=== PATIENT | female | born 1965 | race Caucasian/White ===

== ENCOUNTER → 2017-05-11 | Outpatient (CLI) | payer BC ==
--- NOTE | 2017-05-11 11:27 | DIAGNOSTIC IMAGING REPORT ---
LEFT FOOT ULTRASOUND CLINICAL HISTORY: Foreign body in foot. COMPARISON STUDY: No previous studies for comparison. FINDINGS: Targeted sonography of the plantar aspect of the left foot demonstrated a 0.5 x 0.5 x 0.2 cm hypoechoic region which contained a 0.1 cm echogenic focus. This finding is 0.5 cm from the skin. A possible tract to the skin was noted. IMPRESSION: Findings suggestive of a 0.1 cm foreign body within the plantar subcutaneous tissues of the left foot with associated 0.5 cm fluid collection, located 0.5 cm from the skin. Electronically signed by: Duncan Briceño M.D. 05/11/2017 11:26 AM Dictated Date/Time: 05/11/2017 11:24 AM
== END | disposition home or self-care (01) ==
LOC: C.ULTR 10:22
PROVIDERS: ATTEND Family Medicine
DX: S90.852A Superficial foreign body, left foot, initial encounter (principal); X58.XXXA Exposure to other specified factors, initial encounter

== ENCOUNTER → 2017-05-18 | Outpatient (CLI) | payer BC | END | disposition home or self-care (01) | LOC: C.LABMFLN 11:07 | PROVIDERS: ATTEND Family Medicine | DX: R00.2 Palpitations (principal) ==

== ENCOUNTER → 2017-07-27 | Outpatient (CLI) | payer BC ==
[~2017-07-27] MED LIST: PERFLUTREN LIPID MICROSPHERE (DEFINITY) IV ONE; REGADENOSON 0.4 MG/5 ML SYR ONE
--- NOTE | 2017-07-27 17:40 | ECHOCARDIOGRAM REPORT ---
*NOTICE TO RECEIVING [employer] This information is strictly Confidential and protected under [place] law. [place] law prohibits you from making any further disclosure of this information unless further disclosure is expressly permitted by the written consent of the person to whom it pertains or is authorized by law. A general authorization for the release of medical or other information is not sufficient for this purpose. Hospital accepts no responsibility if the information is made available to any other person, INCLUDING THE PATIENT. Interpretation Summary * Name: MORENA SHIN Study Date: 07/27/2017 12:20 PM * Patient Location: [facility] HR: 70 * : 1965 (M/d/yyyy) Gender: Female Height: 64 in * Age: 52 yrs Ethnicity: [place] Weight: 274 lb * Ordering Physician: Navarro Eddy * Referring Physician: Navarro Eddy. * Performed By: Ginger French RCS * * Reason For Study: CHEST PAIN * BSA: 2.2 m2 * -- Conclusions -- * 1. Normal LV size. Mild concentric LVH with asymmetric basal septal hypertrophy. * 2. LVEF 30-35 percent. Severe inferior hypokinesis. Severe apical hypokinesis. * 3. Normal RV size and function. * 4. Mild mitral regurgitation. * 5. Grade 1 diastolic dysfunction. * 6. No prior studies for comparison. Procedure Details * A complete two-dimensional transthoracic echocardiogram was performed (2D, M-mode, Doppler and color flow Doppler). * The study was technically difficult. * A contrast injection of Definity was performed to improve assessment of LV function. * Contrast was injected into an intravenous site in the left arm. * One vial of Definity ultrasound contrast was diluted in normal saline to a total volume of 10 ml. A total of '3' ml of solution was administered during imaging. * Lot # [id number] of Definity utilized for procedure. * Expiration date JUL 07. Left Ventricle * The left ventricle is grossly normal size. * There is no thrombus. * There is mild concentric left ventricular hypertrophy. * Asymmetric basal septal hypertrophy. * Ejection Fraction = 30-35%. * Septal motion is consistent with conduction abnormality. * There is severe inferior wall hypokinesis. * There is severe apical wall hypokinesis. Right Ventricle * The right ventricle is grossly normal size. * The right ventricular systolic function is normal as assessed by tricuspid annular plane systolic excursion (TAPSE) (normal >1.5 cm). Atria * The left atrial size is normal. * Right atrial size is normal. Mitral Valve * The mitral valve is grossly normal. * There is no mitral valve stenosis. * There is mild mitral regurgitation. Tricuspid Valve * There is trace tricuspid regurgitation. Aortic Valve * The aortic valve opens well. * The aortic valve is trileaflet. * No hemodynamically significant valvular aortic stenosis. * There is no significant aortic regurgitation. Pulmonic Valve * The pulmonary valve is inadequately visualized, but the Doppler data is adequate for interpretation. * There is no significant pulmonary regurgitation. Great Vessels * The aortic root and proximal ascending aorta are normal sized. Pericardium/Pleural * There is no pericardial effusion. Left Ventricular Diastolic Function * Grade I diastolic dysfunction, (abnormal relaxation pattern). MMode 2D Measurements and Calculations IVSd 1.7 cm IVSs 2.0 cm LVIDd 6.0 cm LVIDs 4.5 cm LVPWd 1.3 cm LVPWs 1.6 cm IVS/LVPW 1.3 FS 23.9 % EDV(Teich) 177.6 ml ESV(Teich) 94.5 ml EF(Teich) 46.8 % EDV(cubed) 212.3 ml ESV(cubed) 93.7 ml EF(cubed) 55.8 % % IVS thick 17.8 % % LVPW thick 17.0 % LV mass(C)d 431.9 grams LV mass(C)dI 193.1 grams/m\S\2 LV mass(C)s 367.2 grams LV mass(C)sI 164.2 grams/m\S\2 SV(Teich) 83.1 ml SI(Teich) 37.2 ml/m\S\2 SV(cubed) 118.6 ml SI(cubed) 53.0 ml/m\S\2 Ao root diam 3.3 cm Ao root area 8.5 cm\S\2 LA dimension 4.6 cm LA/Ao 1.4 LVOT diam 2.0 cm LVOT area 3.1 cm\S\2 LVAd ap4 32.7 cm\S\2 LVLd ap4 6.9 cm EDV(MOD-sp4) 126.6 ml EDV(sp4-el) 130.9 ml LVAs ap4 24.8 cm\S\2 LVLs ap4 6.3 cm ESV(MOD-sp4) 80.0 ml ESV(sp4-el) 82.9 ml EF(MOD-sp4) 36.8 % EF(sp4-el) 36.6 % LVAd ap2 45.9 cm\S\2 LVLd ap2 9.3 cm EDV(MOD-sp2) 190.9 ml EDV(sp2-el) 191.6 ml LVAs ap2 33.8 cm\S\2 LVLs ap2 7.7 cm ESV(MOD-sp2) 122.2 ml ESV(sp2-el) 125.1 ml EF(MOD-sp2) 36.0 % EF(sp2-el) 34.7 % LVLd %diff 25.6 % EDV(MOD-bp) 180.4 ml LVLs %diff 18.4 % ESV(MOD-bp) 108.2 ml EF(MOD-bp) 40.0 % SV(MOD-sp4) 46.6 ml SI(MOD-sp4) 20.8 ml/m\S\2 SV(MOD-sp2) 68.6 ml SI(MOD-sp2) 30.7 ml/m\S\2 SV(MOD-bp) 72.1 ml SI(MOD-bp) 32.3 ml/m\S\2 SV(sp4-el) 48.0 ml SI(sp4-el) 21.5 ml/m\S\2 SV(sp2-el) 66.5 ml SI(sp2-el) 29.7 ml/m\S\2 Doppler Measurements and Calculations MV E max kimberlyn 77.1 cm/sec MV A max kimberlyn 96.0 cm/sec MV E/A 0.80 MV P1/2t max kimberlyn 82.0 cm/sec MV P1/2t 72.6 msec MVA(P1/2t) 3.0 cm\S\2 MV dec slope 330.5 cm/sec\S\2 MV dec time 0.21 sec Ao V2 max 130.7 cm/sec Ao max PG 6.8 mmHg Ao max PG (full) 4.0 mmHg GMÓEZ(V,A) 2.0 cm\S\2 GÓMEZ(V,D) 2.0 cm\S\2 LV V1 max PG 2.9 mmHg LV V1 max 84.6 cm/sec PA V2 max 113.9 cm/sec PA max PG 5.2 mmHg TR max kimberlyn 267.5 cm/sec
== END | disposition home or self-care (01) ==
LOC: C.NUCL 09:17
PROVIDERS: ATTEND Internal Medicine Cardiovascular Disease
DX: I50.30 Unspecified diastolic (congestive) heart failure (principal); E78.5 Hyperlipidemia, unspecified; F17.210 Nicotine dependence, cigarettes, uncomplicated; I11.0 Hypertensive heart disease with heart failure; I44.7 Left bundle-branch block, unspecified; R00.2 Palpitations; R06.2 Wheezing; R07.89 Other chest pain

== ENCOUNTER → 2017-10-24 | Outpatient (CLI) | payer BC ==
[~2017-10-24] MED LIST changes: +ASPI81TA28 PO; +GLIM4TAB2 PO; +LOSA1TAB38 PO; +LPT40 PO; +LSX20 PO; +METO-217 PO; -PERFLUTREN LIPID MICROSPHERE (DEFINITY) IV ONE; -REGADENOSON 0.4 MG/5 ML SYR ONE
[2017-10-24 18:29] LABS: HEMATOCRIT 46.2 % (37-47); HEMOGLOBIN 15.4 g/dL (12.0-16.0); MEAN CELL VOLUME 90.4 fL (80-100); MEAN CORPUSCULAR HEMOGLOBIN 30.1 pg (25-34); MEAN CORPUSCULAR HGB CONC 33.3 g/dl (32-36); MEAN PLATELET VOLUME 10.8 fL (7.4-10.4); PLATELET COUNT 229 K/uL (130-400); RED CELL DISTRIBUTION WIDTH CV 12.6 % (11.5-14.5); RED CELL DISTRIBUTION WIDTH SD 41.6 fL (36.4-46.3); WHITE BLOOD COUNT 13.34 K/uL (4.8-10.8)
[2017-10-24 18:40] LABS: BLOOD UREA NITROGEN 22 mg/dl (7-18); CALCIUM 9.3 mg/dl (8.5-10.1); CARBON DIOXIDE 24 mmol/L (21-32); CREATININE 1.05 mg/dl (0.60-1.20); GLUCOSE 284 mg/dl (70-99); POTASSIUM 4.9 mmol/L (3.5-5.1); SODIUM 134 mmol/L (136-145)
[2017-10-24 18:41] LABS: INR 0.9 (0.9-1.1)
== END | disposition home or self-care (01) ==
LOC: C.LABMFLN 14:30
PROVIDERS: ATTEND Physician Assistant
DX: I42.9 Cardiomyopathy, unspecified (principal)

== ENCOUNTER → 2017-10-26 | Day surgery (SDC) | payer BC ==
[~2017-10-26] VITALS: Ht 161.3 cm; Wt 125.0 kg
[~2017-10-26] MED LIST changes: +ACETAMINOPHEN 325 MG TAB PO PRN; +ASPIRIN 81 MG CHEW ONE; +ATORVASTATIN 40 MG TAB PO SCH; +FENTANYL CITRATE INJ 50 MCG/1 ML 2 ML VIAL ONE; +FUROSEMIDE 20 MG TAB PO SCH; +FUROSEMIDE 40 MG/4 ML VIAL ONE; +FUROSEMIDE INJ 20 MG in SYRINGE 0 ML IV ONE; +HEPARIN SOD (PORCINE) 1000 UNIT/ML 10 ML VIAL ONE; +MIDAZOLAM HCL 1 MG/ML 2ML VIAL ONE; +NITROGLYCERIN/D5W 100MCG/ML 20ML SYR ONE; +NiCARDipine HCL INJ 2.5 MG/ML 10 ML AMP ONE; +ONDANSETRON INJ 2 MG/ML 2 ML VIAL IV PRN; +SODIUM CHLORIDE 0.9% 1000ML 1,000 ML IV SCH; +SODIUM CHLORIDE 0.9% 1000ML 250 ML IV PRN
[2017-10-26 07:21] VITALS: BP 154/79; PULSE 73; TEMP 36.7; O2SAT 98; Ht 161.3 cm; Wt 125.0 kg
--- NOTE | 2017-10-26 07:47 | History & Physical Bridge Note ---
H&P Re-Evaluation Bridge Note: I have examined the patient, reviewed the History & Physical and in the interval since the performance of the History & Physical I have noted the following changes of clinical significance: No changes noted
--- NOTE | 2017-10-26 07:48 | Pre Sedation Assessment ---
Pre Sedation Assessment General Date of Sedation: Oct 26, 2017. Vital Signs Past 12 Hours Date Time Temp Pulse Resp B/P (MAP) Pulse Ox O2 Delivery O2 Flow Rate FiO2 10/26/17 07:21 36.7 73 16 154/79 (104) 98 Room Air Review Cardiovascular: regular rate, rhythm Lungs: lungs clear Pre-Sedation Airway Assessment Smoking Status: Current Every Day Smoker Hx of Sleep Apnea: Yes Short Thick Neck: Yes Thyro-mental Distance: < or =3 Finger Breadths Oral Cavity: WNL Mallampati Classification: Class IV ASA Classification: Class III NPO Status Date of Last Intake of Fluids: Oct 25, 2017 Time of Last Intake of Fluids: 2300 Date of Last Intake of Solids: Oct 25, 2017 Time of Last Intake of Solids: 2300 Procedure Planning Contraindications for Sedation: None Current Medications Reviewed: Yes Notes The planned sedation has been discussed with the patient. Informed Consent was obtained. I have identified the patient, determined the appropriateness of sedation and have assessed the patient immediately prior to the procedure. All medicine(s) and interventions are by my order.
--- NOTE | 2017-10-26 07:57 | Cardiac Catheterization ---
Procedure Note Procedure Date Oct 26, 2017. Pre-Procedure Diagnosis Cardiomyopathy AUC Score 7 Post-Procedure Diagnosis Mild CAD, Elevated Intracardiac Pressures Procedure(s) Performed Coronary Angiography, Left Heart Cath, Right Heart Cath Clothing Patternmaker Dr. Eddy Water/Wastewater Engineer(s) Contino Estimated Blood Loss < 25 ml Medication(s) Fentanyl, Heparin, Nicardipine, Versed, Lidocaine 1% Summary of Findings Coronary angiography: 1. Left main coronary artery: Large caliber vessel. No significant CAD. 2. Left anterior descending: The LAD is a large caliber vessel that wraps around the apex. There are luminal irregularities in the mid LAD. There is a very large caliber branching D1 and also a D2 vessel. No significant CAD within the diagonal vessels. 3. Circumflex: The circumflex is a medium to large caliber vessel. It gives rise to a small caliber OM1 and OM2. No significant CAD within the circumflex system. 4. Right coronary artery: The RCA is a very large caliber vessel. Dominant RCA. Mid RCA 30-40%. Large PDA and large PL branches without significant CAD. Left heart catheterization: 1. Left ventriculography was not performed. 2. No significant aortic stenosis. Peak to peak gradient across the aortic valve was 5mmHg. 3. Mildly elevated LVEDP; 17mmHg. Right heart catheterization: 1. Moderately elevated pulmonary capillary wedge pressure. V-wave 25 with a mean of 20mmHg. 2. PA pressure 47/21 with a mean of 30mmHg. 3. Right ventricular pressure 47/10 with RV EDP of 18 mmHg. 4. Right atrial pressure A-wave 18, V-wave 17, mean 15mmHg. 5. Cardiac output via thermodilution was 8.4 L/min, with a cardiac index of 3.8 L/min/m2. 6. PVR 1.19 Wood units. Sedation start time 8:06 a.m. Sedation end time 8:42 a.m. Procedural details: 1. Right heart catheterization was performed via the right brachiocephalic vein without known complication. 2. Left heart catheterization was performed via the right radial artery without known complication with 6 Urdu JL 3.5 and JR 4 diagnostic catheters. Impression: 1. Mild nonobstructive CAD involving the mid RCA. 2. Non ischemic cardiomyopathy (echo has demonstrated reduced LV systolic function). 3. Pulmonary hypertension likely secondary to left-sided heart failure. 4. Elevated filling pressures. 5. Normal cardiac output. 6. No significant aortic stenosis. Plan: 1. Optimize medical therapy. 2. Diuretic therapy. 3. Low-sodium diet, less than 2000 mg daily, discussed with patient. 4. Compliance with medications highly recommended. She admits that she has not been compliant with her beta-bernie therapy and is not taking it for the past few days. For that reason, further titration was not performed today. Hemodynamics Rest Ao: 149/74 Final Ao: 147/74 LV: 142/8/17 Recommendations Medical therapy and/or Counseling Specimens None Radiation Exposure (mGy) 1663 mGy. Fluoro time 6.6 min. Contrast (mls) 55 ml Procedural Complication(s) None Disposition Perinatal Instructor Holding/Recovery ACC Data Cardiac Status Clinical evaluation leading to the procedure CAD Presntation: Positive Stress Test Anginal Classification: No symptoms Heart Failure: No Cardiogenic Shock w/in 24Hrs: No Cardiac Arrest w/in 24Hrs: No Imaging studies past 6 months: Yes (Echo with cardiomyopathy) Stress studies past 6 months: Yes Standard Exercise Stress Test: No Stress Echocardiogram: No Stress Testing w/SPECT MPI: Yes - Positive, Risk/Extent of Ischemia (Low) Cardiac CTA: No Coronary Anatomy Dominant: Right Left Main (% Stenosis): Normal LAD (% Stenosis): Mid (Luminal irregularities.) D1 (% Stenosis): Normal D2 (% Stenosis): Normal Circumflex (% Stenosis): Normal OM1 (% Stenosis): Normal OM2 (% Stenosis): Normal RCA (% Stenosis): Mid (30-40%) R PDA (% Stenosis): Normal R PL1 (% Stenosis): Normal Left Ventricular Angiography EF (%): n/a Diagnostic Physician's Name: Navarro Eddy MD Status: Elective Closure Device Percutaneous Entry Location: Radial Closure Device: Radial Band Recommendations: Medical therapy and/or Counseling
--- NOTE | 2017-10-26 07:58 | Discharge Instructions ---
Discharge Instructions Date of Service Oct 26, 2017. Visit Reason for Visit: Cardiac catheterization to investigate cardiomyopathy Discharge Discharge Diagnosis / Problem: Mild coronary artery disease. Elevated filling pressures (heart failure). Discharge Goals Goal(s): Diagnostic testing, Therapeutic intervention Activity Recommendations Activity Limitations: per Instructions/Follow-up section Anesthesia . Post Anesthesia Instructions: If you have had General Anesthesia or IV Sedation: * Do not drive today. * Resume driving when surgeon permits. * Do not make important decisions or sign legal documents today. * Call surgeon for: 1. Temperature elevations greater than 101 degrees F. 2. Uncontrollable pain. 3. Excessive bleeding. 4. Persistent nausea and vomiting. 5. Medication intolerance (nausea, vomiting or rash). * For nausea and vomiting use only clear liquids such as: tea, soda, bouillon until nausea subsides, then gradually increase diet as tolerated. * If you have any concerns or questions, call your surgeon's office. If physician is unavailable and it is an emergency, call 911 or go to the nearest emergency room. . Instructions / Follow-Up Instructions / Follow-Up Follow up: 1. Follow up in Dr. Eddy's office in 1-2 weeks. His office will contact you with time/date of appointment. 2. Lab work in 5-7 days. ACTIVITY RECOMMENDATIONS: Excess manipulation of the wrist should be avoided for the next 24-48 hours. * No lifting over 2 pounds (approximately a 1/2 gallon of milk) with the utilized arm for 24 hours. * No strenuous activity such as bowling or tennis for 3 days. * Keep the site of the procedure covered with a bandage for 24 hours. *You may shower the day after the procedure. Do not take a tub bath or submerge the puncture site in water for the next 3 days. *Do not operate any motorized equipment for 3 days. SPECIAL CARE INSTRUCTIONS: The site may be slightly bruised and sore following your procedure. Should any of the following occur, contact the DrDiana who performed your procedure. 1. Redness/inflammation, swelling, chills, or fever, or colored drainage at procedure site within 3-7 days after your procedure. 2. Coldness, discoloration, ongoing numbness, severe pain, or swelling. Expect mild tingling of hand and tenderness at the puncture site for up to three days. If this persists beyond three days, or other symptoms develop, notify the Dr. who performed your procedure. BLEEDING: If the procedure site on your wrist begins to bleed, do not panic 1. Place 1 or 2 fingers firmly just slightly above the insertion site to stop the bleeding. You may be able to feel your pulse as you hold pressure. 2. Lift your finger after 5 minutes to see if the bleeding has stopped. 3. Once the bleeding has stopped, gently wipe the wrist area clean with a bandage. * If the bleeding from your wrist does not stop after 10 minutes, or if there is a large amount of bleeding or spurting, call 911 ([address] drive yourself to the hospital). SKIN IRRITATION: * You may experience some redness and/or swelling in the area where radiation was administered. If any skin irritation occurs, please contact your family physician. FOLLOW UP VISIT: Keep any scheduled doctor appointments. Diet Recommendations Recommended Home Diet: low sodium, diabetes diet Procedures Procedures Performed: 1. Coronary angiography 2. Left heart catheterization 3. Right heart catheterization Pending Studies Studies pending at discharge: no Medical Emergencies . Who to Call and When: Medical Emergencies: If at any time you feel your situation is an emergency, please call 911 immediately. . Non-Emergent Contact Non-Emergency issues call your: Tool Room Supervisor . . "Provider Documentation" section prepared by Navarro Craft. .
[2017-10-26 11:15] VITALS: O2SAT 95
[2017-10-26 11:29] VITALS: BP 161/85; PULSE 75
== END | disposition home or self-care (01) ==
LOC: C.CATH 07:06
PROVIDERS: ATTEND Internal Medicine Cardiovascular Disease
DX: I42.9 Cardiomyopathy, unspecified (principal); I25.10 Atherosclerotic heart disease of native coronary artery without angina pectoris; R94.39 Abnormal result of other cardiovascular function study; I49.1 Atrial premature depolarization; I47.1 Supraventricular tachycardia; I44.7 Left bundle-branch block, unspecified; E78.5 Hyperlipidemia, unspecified; E11.9 Type 2 diabetes mellitus without complications; I10 Essential (primary) hypertension; F17.210 Nicotine dependence, cigarettes, uncomplicated; Z79.82 Long term (current) use of aspirin; Z82.49 Family history of ischemic heart disease and other diseases of the circulatory system

== ENCOUNTER → 2017-10-31 | Outpatient (CLI) | payer BC ==
[~2017-10-31] MED LIST changes: -ACETAMINOPHEN 325 MG TAB PO PRN; -ASPIRIN 81 MG CHEW ONE; -ATORVASTATIN 40 MG TAB PO SCH; -FENTANYL CITRATE INJ 50 MCG/1 ML 2 ML VIAL ONE; -FUROSEMIDE 20 MG TAB PO SCH; -FUROSEMIDE 40 MG/4 ML VIAL ONE; -FUROSEMIDE INJ 20 MG in SYRINGE 0 ML IV ONE; -HEPARIN SOD (PORCINE) 1000 UNIT/ML 10 ML VIAL ONE; -MIDAZOLAM HCL 1 MG/ML 2ML VIAL ONE; -NITROGLYCERIN/D5W 100MCG/ML 20ML SYR ONE; -NiCARDipine HCL INJ 2.5 MG/ML 10 ML AMP ONE; -ONDANSETRON INJ 2 MG/ML 2 ML VIAL IV PRN; -SODIUM CHLORIDE 0.9% 1000ML 1,000 ML IV SCH; -SODIUM CHLORIDE 0.9% 1000ML 250 ML IV PRN
[2017-10-31 18:33] LABS: BLOOD UREA NITROGEN 22 mg/dl (7-18); CALCIUM 9.8 mg/dl (8.5-10.1); CARBON DIOXIDE 29 mmol/L (21-32); CREATININE 1.03 mg/dl (0.60-1.20); GLUCOSE 247 mg/dl (70-99); POTASSIUM 4.1 mmol/L (3.5-5.1); SODIUM 135 mmol/L (136-145)
== END | disposition home or self-care (01) ==
LOC: C.LABMFLN 14:43
PROVIDERS: ATTEND Internal Medicine Cardiovascular Disease
DX: I10 Essential (primary) hypertension (principal); R94.31 Abnormal electrocardiogram [ECG] [EKG]; E78.5 Hyperlipidemia, unspecified; R06.02 Shortness of breath; R07.89 Other chest pain; I42.9 Cardiomyopathy, unspecified; R94.39 Abnormal result of other cardiovascular function study